=== PATIENT | female | born 2005 | race Caucasian/White ===

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

== ENCOUNTER 2025-01-04 11:34 | Emergency (ER) | payer BC, OTHER ==
[2025-01-04 12:59] LABS: Specific Gravity 1.019 (1.005-1.030); Sqamous Epithelial <5 /HPF (None Seen); Urine Bacteria 20-50 /HPF (<20); Urine Bilirubin NEGATIVE (Negative); Urine Blood Negative (Negative); Urine Clarity Extremely Turbid (Clear); Urine Color Light-Yellow (Yellow); Urine Culture Reflex Order NOT NEEDED; Urine Glucose NEGATIVE (Negative); Urine Ketones NEGATIVE (Negative); Urine Microscopic Reflex YN ORDER UMIC; Urine Mucus Slight /HPF (None Seen); Urine Nitrite NEGATIVE (Negative); Urine Protein NEGATIVE (Negative); Urine RBC <5 /HPF (None Seen); Urine Urobilinogen Normal (Normal)
[2025-01-04] MEDS ORDERED: CEFTRIAXONE 1000 MG/VIAL ONE (13:21)
--- NOTE | 2025-01-04 13:33 | ER ---
Nurse's Notes [facility] Name: Lili Jo Age: 19 yrs Sex: Female : 2005 Arrival Date: 01/04/2025 Time: 11:34 Bed 15 Private MD: Teo Georges Diagnosis: 32 weeks gestation of ;UTI/ Urinary tract infection, site not specified Presentation: 01/04 11:53 Chief complaint: Patient states: Pelvic pain and pressure that radiates to back onset cm10 today at 0400. Pt states that the pain is constant. Coronavirus screen: Client denies travel out of the [place] in the last 14 days. Ebola Screen: Patient denies travel to an Ebola-affected area in the 21 days before illness onset. Initial Sepsis Screen: Does the patient meet any 2 criteria? No. Patient's initial sepsis screen is negative. Does the patient have a suspected source of infection? No. Patient's initial sepsis screen is negative. Risk Assessment: Do you want to hurt yourself or someone else? Patient reports no desire to harm self or others. Onset of symptoms was January 04, 2025. 11:53 Method Of Arrival: Ambulatory cm10 11:53 Acuity: PRISCILLA 3 cm10 Triage Assessment: 11:56 General: Appears uncomfortable, Behavior is calm, cooperative. Neuro: No deficits cm10 noted. Level of Consciousness is awake, alert, obeys commands, Oriented to person, place, time, situation, Appropriate for age. Respiratory: No deficits noted. Airway is patent Respiratory effort is even, unlabored, Respiratory pattern is regular, symmetrical. 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 - Infectious Disease History:: Denies. - Social history:: Smoking status: unknown. Screenin:00 [facility] ED Fall Risk Assessment (Adult) History of falling in the last 3 months, kj2 including since admission No falls in past 3 months (0 pts) Confusion or Disorientation No (0 pts) Intoxicated or Sedated No (0 pts) Impaired Gait No (0 pts) Mobility Assist Device Used No (0 pt) Altered Elimination No (0 pt) Score/Fall Risk Level 0 - 2 = Low Risk Maintained a safe environment, Hourly rounding (assess needs \T\ fall precautionary measures) done. Abuse screen: Denies threats or abuse. Denies injuries from another. Nutritional screening: No deficits noted. Tuberculosis screening: No symptoms or risk factors identified. Assessment: 12:00 General: Appears in no apparent distress. Behavior is cooperative. Pain: Complains of kj2 pain in LOW RIGHT ABDOMINAL PAIN Pain currently is 6 out of 10 on a pain scale. Neuro: Level of Consciousness is awake, alert, obeys commands, Oriented to person, place, time, situation. Cardiovascular: Patient's skin is warm and dry. Respiratory: Airway is patent Respiratory effort is even, unlabored. GI: Bowel sounds present X 4 quads. : No signs and/or symptoms were reported regarding the genitourinary system. 12:15 GI: Abd is non tender. kj2 12:25 Reassessment: HEART TONES 134BPM. kj2 13:00 Reassessment: Patient appears in no apparent distress at this time. Patient and/or kj2 family updated on plan of care and expected duration. Pain level reassessed. Patient is alert, oriented x 3, equal unlabored respirations, skin warm/dry/pink. 13:35 Reassessment: Patient appears in no apparent distress at this time. Patient and/or kj2 family updated on plan of care and expected duration. Pain level reassessed. Patient is alert, oriented x 3, equal unlabored respirations, skin warm/dry/pink. Vital Signs: 11:53 BP 135 / 97; Pulse 90; Resp 16; Temp 98.4; Pulse Ox 100% ; Weight 102.06 kg; Height 6 cm10 ft. 0 in. ; Pain 6/10; 12:00 BP 134 / 82; Pulse 103; Resp 20; Pulse Ox 100% ; kj2 13:00 BP 117 / 67; Pulse 83; Resp 20; Temp 98; Pulse Ox 98% ; kj2 13:30 BP 118 / 68; Pulse 77; Resp 20; Temp 98; Pulse Ox 100% on R/A; kj2 11:53 Body Mass Index 30.52 (102.06 kg, 182.88 cm) cm10 11:53 Pain Scale: Adult cm10 ED Course: 11:35 Patient arrived in ED. am2 11:35 Teo Georges DO is Private Physician. am2 11:42 Rip Glaser MD is Attending Physician. bo1 11:55 Triage completed. cm10 11:56 Arm band placed on right wrist. Patient placed in an exam room, on a stretcher. cm10 12:00 Patient has correct armband on for positive identification. Provided Education on: CALL kj2 LIGHT. 12:12 Lucille Washburn, RN is Primary Nurse. ph 12:45 Urinalysis w/ reflexes Sent. kj2 13:35 No provider procedures requiring assistance completed. Patient did not have IV access kj2 during this emergency room visit. Administered Medications: 13:27 Drug: Rocephin (cefTRIAXone) IM 1 grams IM once Route: IM; Site: right gluteus; kj2 13:36 Follow up: Response: No adverse reaction kj2 Medication: 12:43 VIS not applicable for this client. kj2 Outcome: 13:32 Discharge ordered by . bo1 13:36 Discharged to home ambulatory, with family, kj2 13:36 Condition: stable 13:36 Discharge instructions given to patient, Instructed on discharge instructions, follow up and referral plans. medication usage, Demonstrated understanding of instructions, follow-up care, medications, Prescriptions given X 1, 13:42 Patient left the ED. kj2 Signatures: Lucille Washburn, JULIANN HUMPHREYS Soraya Fields am2 Arlen Vasques RN RN 10 Rip Glaser MD MD bo1 Michelle Hannah RN RN kj2
--- NOTE | 2025-01-04 13:33 | EDPHYS ---
Physician Documentation [facility] Name: Lili Jo Age: 19 yrs Sex: Female : 2005 Arrival Date: 01/04/2025 Time: 11:34 Bed 15 Private MD: Teo Georges ED Physician Rip Glaser HPI: 01/04 13:21 This 19 yrs old Female presents to ER via Ambulatory with complaints of Abdominal Pain, bo1 Pelvic Pain - 32 wks preg. 13:21 UTI sxs - radiation of pain from right flank to the suprapubic area. Onset: The bo1 symptoms/episode began/occurred gradually, yesterday. Severity of symptoms: At their worst the symptoms were mild. No fever, no bloody show or SROM. 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 - Infectious Disease History:: Denies. - Social history:: Smoking status: unknown. ROS: 13:22 Constitutional: Negative for fever, chills, and weight loss bo1 13:22 Abdomen/GI: Negative for nausea and vomiting, 13:22 : Positive for urinary symptoms, flank pain, burning with urination, Right flank to the right suprapubic area, 13:22 Skin: Negative for rash, Exam: 13:25 Constitutional: This is a well developed, well nourished patient who is awake, alert, bo1 and in no acute distress. 13:25 Constitutional: The patient appears in no acute distress, alert, awake, comfortable, non-toxic, Pt is gravid 13:25 Neck: Exam negative for acute changes, 13:25 Cardiovascular: Rate: normal, Pulses: no pulse deficits are appreciated, 13:25 Respiratory: the patient does not display signs of respiratory distress, Breath sounds: are clear throughout, 13:25 Abdomen/GI: Inspection: gravid appearance, is noted, 30 plus weeks, 13:25 Back: CVA tenderness, is absent, "radiation of discomfort" from the right flank to the right suprapubic area - "constant.", 13:25 : No bleeding or SROM, 13:25 Skin: no rash present. Vital Signs: 11:53 BP 135 / 97; Pulse 90; Resp 16; Temp 98.4; Pulse Ox 100% ; Weight 102.06 kg; Height 6 cm10 ft. 0 in. ; Pain 6/10; 12:00 BP 134 / 82; Pulse 103; Resp 20; Pulse Ox 100% ; kj2 13:00 BP 117 / 67; Pulse 83; Resp 20; Temp 98; Pulse Ox 98% ; kj2 13:30 BP 118 / 68; Pulse 77; Resp 20; Temp 98; Pulse Ox 100% on R/A; kj2 11:53 Body Mass Index 30.52 (102.06 kg, 182.88 cm) cm10 11:53 Pain Scale: Adult cm10 MDM: 12:57 Medical Screening Exam initiated bo1 13:27 Differential Diagnosis UTI in a 32 week IUP - . Data reviewed: vital signs, lab bo1 test result(s), urinalysis, Urine culture: Pending. I considered the following discharge prescriptions or medication management in the emergency department Medications were administered in the Emergency Department. See MAR. ED course: Pt is non-toxic. No abd or uterine irritability. Appropriate FHTs and movement. Lab suggests UTI. Will treat, pt will f/u with [facility] for f/u.. 17:02 ED course: Called in additional med: Tylenol #3 (qty #20) for UTI pain. To [facility] on [address] in . Phone call came into the ER from the and pt.. 01/04 11:55 Order name: Urinalysis w/ reflexes; Complete Time: 13:00 bo1 01/04 11:55 Order name: Heart Tones; Complete Time: 12:25 bo1 Administered Medications: 13:27 Drug: Rocephin (cefTRIAXone) IM 1 grams IM once Route: IM; Site: right gluteus; kj2 13:36 Follow up: Response: No adverse reaction kj2 Disposition Summary: 01/04/25 13:32 Discharge Ordered Notes: Location: Home bo1 Problem: new bo1 Symptoms: are unchanged bo1 Condition: Stable bo1 Diagnosis - 32 weeks gestation of bo1 - UTI/ Urinary tract infection, site not specified bo1 Followup: bo1 - With: Private Physician - When: Upon discharge from the Emergency Department - Reason: Recheck today's complaints, Continuance of care Discharge Instructions: - Discharge Summary Sheet bo1 - Urinary Tract Infection, Adult bo1 Forms: - Work release form ty - Medication Reconciliation Form bo1 - Antibiotic Education bo1 - Prescription Opioid Use bo1 - Patient Portal Instructions bo1 - Leadership Thank You Letter bo1 Prescriptions: - Macrobid 100 mg Oral Capsule - take 1 capsule ORAL route every 12 hours for 14 days; 28 capsule; Refills: 0, bo1 Product Selection Permitted Signatures: Dispatcher [employer] Arlen Martinez, RN RN cm10 Rip Glaser MD MD bo1 Michelle Hannah RN RN kj2
[2025-01-04 14:02] VITALS: TEMP 98
[2025-01-04 14:04] VITALS: BP 118/68; O2SAT 100
== END 2025-01-04 13:42 | disposition home or self-care (01) ==
LOC: ER 11:34
DX: O23.43 Unspecified infection of urinary tract in pregnancy, third trimester (principal); Z3A.32 32 weeks gestation of pregnancy
CPT/HCPCS: 81001; 96372; 99284; J0696